=== PATIENT | female | born 1990 | race Caucasian/White ===

== ENCOUNTER 2021-11-30 15:46 | Emergency (ER) | payer OTHER ==
[~2021-11-30] VITALS: Ht 162.6 cm; Wt 104.5 kg
[2021-11-30 16:11] VITALS: BP 137/85
[2021-11-30] MEDS ORDERED: SMZ/TMP 800/160MG TABLET. PO ONE (16:30)
--- NOTE | 2021-11-30 16:52 | PHYS DOC ---
Past History Past Surgical History: Cholecystectomy Alcohol Use: None General Adult EDM: Chief Complaint: INSECT BITE HPI: HPI: Patient is a 31 year old female who presents with painful insect bite that she noticed this morning. Patient states that this morning, she noticed a small insect bite on her posterior lower leg just distal to the back of the knee. Since she noticed it, the area has become hot, "stinging," painful and red. The redness has increased in size throughout the day. She did not identify any insect, but assumes it was a spider bite. Patient denies fever, chills, generalized weakness, chest pain, palpitations, abdominal pain, N/V/D. She has no other complaints at this time. Review of Systems: Review of Systems: Constitutional: Denies fever, chills or generalized weakness Eyes: Denies change in visual acuity, visual field deficits or discharge HENT: Denies ear pain, nasal congestion or sore throat Respiratory: Denies cough or shortness of breath Cardiovascular: See HPI GI: See HPI : Denies dysuria or hematuria Musculoskeletal: Denies back pain or joint pain Integument: See HPI Neurologic: Denies headache, focal weakness or sensory changes Current Medications: Current Meds: Current Medications Medications (Trade) Dose Ordered Sig/Scott Start Time Stop Time Status Last Admin Dose Admin Trimethoprim/ Sulfamethoxazole (Bactrim Ds) 1 tab 1X ONCE 11/30/21 16:30 11/30/21 16:31 DC 11/30/21 16:33 1 TAB Allergies: Allergies: Allergies Coded Allergies Type Severity Reaction Last Updated Verified Penicillins Allergy Unknown 11/30/21 Yes Physical Exam: PE: Constitutional: Well developed, well nourished, no acute distress, non-toxic appearance. HENT: Normocephalic, atraumatic, bilateral external ears normal, nose normal. Eyes: EOMI, conjunctiva normal, no discharge. Neck: Normal range of motion, no stridor. Skin: Mediolateral aspect of the left lower extremity just distal to the knee has a punctate dark wound with surrounding erythema measuring 5 cm with additional less pigmented ring surrounding central erythema extending an additional 2 cm, isolated additional small rings of erythema appreciated proximally to larger lesion, no purulent drainage, no necrotic tissue, exquisitely tender to touch. Skin otherwise warm, dry, no erythema, no rash. Extremities: See above for bite with surrounding erythema. Extremities otherwise no tenderness, no cyanosis, no clubbing, ROM intact, no edema, distal pulses 2+ and symmetrical. Neurologic: Alert and oriented x4, normal motor function, normal sensory function, no focal deficits noted. Current Patient Data: Vital Signs: Vital Signs Date Time Temp Pulse Resp B/P (MAP) Pulse Ox O2 Delivery O2 Flow Rate FiO2 11/30/21 16:11 98.2 56 16 137/85 (102) 97 Room Air Heart Score: C/O Chest Pain: No Course & Med Decision Making: Course & Med Decision Making Pertinent Labs and Imaging studies reviewed. (See chart for details) Patient is a 31 female who presents with what appears to be from recluse spider bite. Advised patient that while we can control pain and prevent infection, the associated skin breakdown process cannot be slowed. She does not exhibit any systemic symptoms at this time, thus labs deferred. Patient is instructed to follow-up closely with primary care and/or wound care clinic going forward. Return precautions were provided. Patient understands and is agreeable to discharge plan. Rommel Disclaimer: Rommel Disclaimer: This electronic medical record was generated, in whole or in part, using a voice recognition dictation system. Departure Departure: Impression: Primary Impression: Spider bite wound Qualified Codes: T63.301A - Toxic effect of unspecified spider venom, accidental (unintentional), initial encounter Additional Impression: Cellulitis of calf Disposition: 01 HOME / SELF CARE / HOMELESS Condition: STABLE Referrals: NON,STAFF (PCP) Patient Instructions: Brown Recluse Spider Bite, [id number] Additional Instructions: [facility] [address] [place] [address] EMERGENCY DEPARTMENT GENERAL DISCHARGE INSTRUCTIONS Thank you for coming to [facility] (ED) today and trusting us with you care. We trust that you had a positive experience in our Emergency Department. If you wish to speak to the department management, you may call the director at [phone]. YOUR FOLLOW UP INSTRUCTIONS ARE FOLLOWS: 1. Follow up with your primary care doctor. If you do not have a primary doctor, please ask for a resource list of physicians or clinics that may be able to assist you with follow up care. 2. The emergency provider has interpreted your imaging studies, if any were ordered. The radiology retail presentation specialist also reviewed them. If there is a change in the findings, you will be notified in 48 hours when at all possible. 3. If a lab test or culture has been done, your results will be reviewed and you will be notified if you need a change in treatment. 4. Follow instructions verbalized to you and refer to the printouts if needed. ADDITIONAL INSTRUCTIONS AND INFORMATION: 1. Your care today has been supervised by a physician who is specially trained in emergency care. Many problems require more than one evaluation for a complete diagnosis and treatment. We recommend that you schedule your follow up appointment as recommended to ensure complete treatment of you illness or injury. If you are unable to obtain follow up care and continue to have a problem, or if your condition worsens, we recommend that you return to the ED. 2. We are not able to safely determine your condition over the phone nor are we able to give sound medical advice over the phone. For these safety reasons, if you call for medical advice we will ask you to come to the ED for further evaluation. 3. If you have any questions regarding these discharge instructions please call the ED at [phone]. SAFETY INFORMATION: In the interest of safety, wellness, and injury prevention; we encourage you to wear your seat belt, if you smoke; quite smoking, and we encourage family to use a protective helmet for bicycling and other sporting events that present an increased risk for head injury. IF YOUR SYMPTOMS WORSEN OR NEW SYMPTOMS DEVELOP, OR YOU HAVE CONCERNS ABOUT YOUR CONDITION; OR IF YOUR CONDITION WORSENS WHILE YOU ARE WAITING FOR YOUR FOLLOW UP APPOINTMENT; EITHER CONTACT YOUR PRIMARY CARE DOCTOR, THE PHYSICIAN WHOSE NAME AND NUMBER YOU WERE GIVEN, OR RETURN TO THE ED IMMEDIATELY. Scripts Hydrocodone Bit/Acetaminophen (HYDROCODONE-APAP 5-325 ) 1 Each Tablet 1 TAB PO PRN Q6HRS PRN for PAIN, #10 TAB 0 Refills Prov: LONNY EASTMAN 11/30/21 Sulfamethoxazole/Trimethoprim (BACTRIM DS TABLET) 1 Each Tablet 1 TAB PO BID for insect bite cellulitis for 10 Days, #19 TAB 0 Refills Prov: LONNY EASTMAN 11/30/21 LONNY EASTMAN Nov 30, 2021 16:52
[2021-11-30] MEDS ORDERED: HYDR-2155 PO ×2 (17:04→17:06)
[2021-11-30] MEDS ORDERED: SULF1TAB24 PO ×2 (17:04→17:06)
== END 2021-11-30 17:14 | disposition home or self-care (01) ==
LOC: ER 15:46
DX: T63.301A Toxic effect of unspecified spider venom, accidental (unintentional), initial encounter (principal); L03.116 Cellulitis of left lower limb; Z88.0 Allergy status to penicillin; Y92.89 Other specified places as the place of occurrence of the external cause
CPT/HCPCS: 99283